=== PATIENT | female | born 1985 | race Caucasian/White ===

== ENCOUNTER 2017-09-27 14:18 | Emergency (ER) | payer OTHER ==
[~2017-09-27] VITALS: Ht 177.8 cm; Wt 126.1 kg
[2017-09-27 14:22] VITALS: Ht 177.8 cm; Wt 126.1 kg
[2017-09-27] MEDS ORDERED: HYDROmorphONE 1 MG/ML SYG IV STA ×2 (15:08→16:08)
[2017-09-27] MEDS ORDERED: ASPIRIN 325 MG TAB PO STA (15:08)
[2017-09-27] MEDS ORDERED: ONDANSETRON 4 MG INJ IV STA ×2 (15:08→16:08)
[2017-09-27] MEDS ORDERED: SOD CHLORIDE 0.9% 1,000 ML IV STA (15:08)
[2017-09-27] MEDS ORDERED: SOD CHLORIDE 0.9% 100 ML ONE (15:59)
[2017-09-27] MEDS ORDERED: IOHEXOL 0 ML ONE (15:59)
--- NOTE | 2017-09-27 16:01 | RADRPT ---
PROCEDURE: US Pelvis. CLINICAL INDICATION: History of right ovarian cancer, right pelvic pain TECHNIQUE: Multiple sonographic images of the pelvis were obtained utilizing a transabdominal and endovaginal technique. The images were reviewed on a PACS workstation. COMPARISON: None FINDINGS: The uterus is visualized and measures 7.8 cm. The endometrial echo complex is normal and measures 8 mm. Moderate amount of free fluid no pelvic cul-de-sac, likely physiologic. The right ovary has a no rmal echotexture and measures 2.8 cm. The left ovary has a normal echotexture and measures 2.3 cm. No adnexal masses are noted. IMPRESSION: Unremarkable pelvic ultrasound. Free fluid is demonstrated in the pelvic cul-de-sac, likely physiolo gic. RPTAT: QQ Physician Estefany Date Time Electronically viewed and signed by Physician Estefany on 09/27/2017 16:01 /
--- NOTE | 2017-09-27 16:13 | ERD ---
ER Documentation Chief Complaint Chief Complaint Complains of Pelvic pain Hx of Ovarian CA HPI This is a 32-year-old female who was diagnosed with right ovarian cancer in [place] 1 month ago. She is not obtained her [place] health insurance at this time and is waiting for that to get further treatment. She is complaining of a month long pain in the right pelvis is seems to be getting worse over the past day with sharp intermittent pain in the right adnexal region. No nausea vomiting no dysuria no hematuria. She is also complaining of right sharp parasternal chest pain is worse with deep breath and with movement. Denies any recent pushing pulling lifting or trauma. No diaphoresis no palpitations. Denies any shortness of breath with exertion or orthopnea. ROS All systems reviewed and are negative except as per history of present illness. Medications Home Meds No Active Prescriptions or Reported Meds Allergies Allergies: Coded Allergies: No Known Allergy (Unverified , 09/27/17) PMhx/Soc History of Surgery: Yes () Hx Psychiatric Problems: No Hx Miscellaneous Medical Probl: Yes (ovarian ca) Hx Alcohol Use: No Hx Substance Use: No Hx Tobacco Use: No Smoking Status: Never smoker FmHx Family History: No coronary disease Physical Exam Vitals Vital Signs Date Time Temp Pulse Resp B/P Pulse Ox O2 Delivery O2 Flow Rate FiO2 09/27/17 17:53 61 23 112/71 100 Room Air 09/27/17 14:22 98.3 69 20 141/85 98 Physical Exam Const: Well-developed, well-nourished Head: Atraumatic, normocephalic Eyes: Normal Conjunctiva, PERRLA, EOMI, normal sclera, no nystagmus ENT: Normal External Ears, Nose and Mouth, moist mucus membranes. Neck: Full range of motion. No meningismus, no lymphadenopathy. Resp: [Clear to auscultation bilaterally, no wheezing, rhonchi, rales, right anterior sternal costal margin is reproducible tenderness with palpation that is moderate to severe Cardio: Regular rate and rhythm, no murmurs, S1 S2 present Abd: Soft, mild to moderate right adnexal tenderness, obese, non distended. Normal bowel sounds, no guarding or rebound, no pulsitile abdominal masses or bruits Skin: No petechiae or rashes, no ecchymosis , no maculopapular rash Back: No midline or flank tenderness Ext: No cyanosis, or edema, FROM x 4, normal inspection, neurovascularly intact x 4 Neur: Awake and alert, STR 5/5 x 4, sensation intact x 4, no focal findings, cerebellum intact Psych: Normal Mood and Affect, tearful Result Diagram: 09/27/17 1450 09/27/17 1450 Results 24 hrs Laboratory Tests Test 09/27/17 14:50 White Blood Count 8.310^3/ul Red Blood Count 4.4110^6/ul Hemoglobin 12.7g/dl Hematocrit 38.4% Mean Corpuscular Volume 87.1fl Mean Corpuscular Hemoglobin 28.8pg Mean Corpuscular Hemoglobin Concent 33.1g/dl Red Cell Distribution Width 14.3% Platelet Count 14916^3/UL Mean Platelet Volume 12.5fl Neutrophils % 72.7% Lymphocytes % 20.0% Monocytes % 6.3% Eosinophils % 0.6% Basophils % 0.2% Nucleated Red Blood Cells % 0.0/100WBC Neutrophils # 6.010^3/ul Lymphocytes # 1.710^3/ul Monocytes # 0.510^3/ul Eosinophils # 0.110^3/ul Basophils # 0.010^3/ul Nucleated Red Blood Cells # 0.010^3/ul Prothrombin Time 13.9Sec Prothrombin Time Ratio 1.1 INR International Normalized Ratio 1.07 Activated Partial Thromboplast Time 32.5Sec Sodium Level 143mmol/L Potassium Level 4.2mmol/L Chloride Level 107mmol/L Carbon Dioxide Level 23mmol/L Anion Gap 17 Blood Urea Nitrogen 8mg/dl Creatinine 0.79mg/dl Glucose Level 84mg/dl Calcium Level 9.3mg/dl Total Bilirubin 0.5mg/dl Direct Bilirubin 0.00mg/dl Indirect Bilirubin 0.5mg/dl Aspartate Amino Transf (AST/SGOT) 20IU/L Alanine Aminotransferase (ALT/SGPT) 23IU/L Alkaline Phosphatase 76IU/L Troponin I < 0.012ng/ml Total Protein 8.1g/dl Albumin 4.2g/dl Globulin 3.90g/dl Albumin/Globulin Ratio 1.07 Current Medications Medications (Trade) Dose Ordered Sig/Bra[place] Route PRN Reason Start Time Stop Time Status Last Admin Dose Admin Sodium Chloride (NS) 1,000 ml @ 1,000 mls/hr Q1H STAT IV 09/27/17 15:08 09/27/17 16:07 DC 09/27/17 15:18 Hydromorphone HCl (Dilaudid) 1 mg ONCE STAT IV 09/27/17 15:08 09/27/17 15:12 DC 09/27/17 15:17 Ondansetron HCl (Zofran Inj) 4 mg ONCE STAT IV 09/27/17 15:08 09/27/17 15:12 DC 09/27/17 15:17 Aspirin (Aspirin) 325 mg ONCE STAT PO 09/27/17 15:08 09/27/17 15:12 DC 09/27/17 15:17 IV Flush 10 ml 10 ml STK-MED ONCE .ROUTE 09/27/17 15:59 09/27/17 16:00 DC Sodium Chloride 100 ml @ ud STK-MED ONCE .ROUTE 09/27/17 15:59 09/27/17 16:00 DC Iohexol (Omnipaque) 0 ml @ ud STK-MED ONCE .ROUTE 09/27/17 15:59 09/27/17 16:00 DC Hydromorphone HCl (Dilaudid) 1 mg ONCE STAT IV 09/27/17 16:08 09/27/17 16:11 DC 09/27/17 16:29 Ondansetron HCl (Zofran Inj) 4 mg ONCE STAT IV 09/27/17 16:08 09/27/17 16:11 DC 09/27/17 16:29 Iodixanol (Visipaque Locm) 100 ml STK-MED ONCE .ROUTE 09/27/17 16:30 09/27/17 16:31 DC Procedures/MDM PROCEDURE: CTA Chest. CLINICAL INDICATION: Annual Exam TECHNIQUE: The study was performed utilizing a multidetector CT scanner. Direct spiral 1 mm axial sections were obtained from the thoracic inlet to the upper abdomen with the use of 100 cc of Omnipaque 350 nonionic intravenous contrast material and reformatted at 3 mm. Sagittal, coronal and 3-D angiographic reformats were obtained. The images were reviewed on a PACS workstation. CT D I 63 mCi. Dose 726 mCi per centimeter One or more of the following dose reduction techniques were utilized: 1.) Automated exposure control 2.) Adjustment of the mA +/- kV according to patient's size 3.) Use of iterative reconstruction technique. COMPARISON: No prior studies are available for comparison. FINDINGS: No central or peripheral pulmonary embolism is present. Thoracic aorta is normal with no aneurysm or dissection. The lungs are clear of any infiltrate or mass. No pleural or pericardial effusion is seen. There is no hilar or mediastinal adenopathy or mass. No upper abdominal or adrenal mass is detected. The osseous structures are normal. IMPRESSION: No CT evidence for pulmonary embolus, thoracic aortic aneurysm or dissection or pneumonia. .Conor Sandy MD, MD Date Time Electronically viewed and signed by .Conor Sandy MD, MD on 09/27/2017 16: 49 .A/ CC: KADY CRAIG DO PROCEDURE: US Pelvis. CLINICAL INDICATION: History of right ovarian cancer, right pelvic pain TECHNIQUE: Multiple sonographic images of the pelvis were obtained utilizing a transabdominal and endovaginal technique. The images were reviewed on a PACS workstation. COMPARISON: None FINDINGS: The uterus is visualized and measures 7.8 cm. The endometrial echo complex is normal and measures 8 mm. Moderate amount of free fluid no pelvic cul-de-sac, likely physiologic. The right ovary has a normal echotexture and measures 2.8 cm. The left ovary has a normal echotexture and measures 2.3 cm. No adnexal masses are noted. IMPRESSION: Unremarkable pelvic ultrasound. Free fluid is demonstrated in the pelvic cul-de- sac, likely physiologic. RPTAT: QQ Physician Estefany Date Time Electronically viewed and signed by Physician Estefany on 09/27/2017 16 :01 GC/ CC: LEKKOS,APOSTOLOS A. DO The patient does not have any evidence of a right ovarian cyst or mass., The check CT chest that shows no pulmonary embolism. The patient is crying and histrionic. I feel the patient's possibly drug- seeking. We told her to get her labs from [place] and ultrasound and follow-up with gynecology here to sort this out because her sonogram here shows absolutely no ovarian cyst or mass. Her chest wall is tender and that is why she has chest pain is musculoskeletal nature Departure Diagnosis: Primary Impression: Chest wall pain Additional Impression: Pelvic pain Condition: Stable KADY CRAIG DO Sep 27, 2017 16:13
[2017-09-27] MEDS ORDERED: IODIXANOL LOCM 100 ML BTL ONE (16:30)
--- NOTE | 2017-09-27 16:49 | RADRPT ---
PROCEDURE: CTA Chest. CLINICAL INDICATION: Annual Exam TECHNIQUE: The study was performed utilizing a multidetector CT scanner. Direct spiral 1 mm axial sections were obtained from the thoracic inlet to the upper abdomen with the use of 100 cc of Omnipa que 350 nonionic intravenous contrast material and reformatted at 3 mm. Sagittal, coronal and 3-D an giographic reformats were obtained. The images were reviewed on a PACS workstation. CT D I 63 mCi. Dose 726 mCi per centimeter One or more of the following dose reduction techniques were utilized: 1.) Automated exposure control 2.) Adjustment of the mA +/- kV according to patient's size 3.) Use of iterative reconstruction technique. COMPARISON: No prior studies are available for comparison. FINDINGS: No central or peripheral pulmonary embolism is present. Thoracic aorta is normal with no aneurysm or dissection. The lungs are clear of any infiltrate or mass. No pleural or pericardial effusion is se en. There is no hilar or mediastinal adenopathy or mass. No upper abdominal or adrenal mass is detected. The osseous structures are normal. IMPRESSION: No CT evidence for pulmonary embolus, thoracic aortic aneurysm or dissection or pneumonia. .Conor Sandy MD, MD Date Time Electronically viewed and signed by .Conor Sandy MD, on 09/27/2017 16:49 .A/
[2017-09-27] MEDS ORDERED: IBUP800T25 PO (19:48)
[2017-09-27] MEDS ORDERED: HYDR-902 PO (19:48)
[2017-09-27 19:58] VITALS: BP 115/77; PULSE 74; RESP 17
== END 2017-09-27 20:13 | disposition home or self-care (01) ==
LOC: E/R 14:18
DX: R07.89 Other chest pain (principal); Z85.43 Personal history of malignant neoplasm of ovary
CPT/HCPCS: 36415; 71275; 76830; 76856; 80053; 84484; 85025; 85610; 85730; 93005; 96374; 96375; 96376; J1170; J2405; J7030; Q9967; Z7502; Z7610